=== PATIENT | female | born 1960 | race Caucasian/White ===

== ENCOUNTER 2021-04-11 21:08 | Inpatient (IN) | payer BC ==
[~2021-04-11] VITALS: Ht 172.7 cm; Wt 77.0 kg
[~2021-04-11 21:08] MED LIST: temazepam 15mg capsule PO PRN
[2021-04-11] MEDS ORDERED: ondansetron 4mg rapidly disintigrating tab PO PRN (21:55)
[2021-04-11] MEDS ORDERED: bisacodyl 10mg suppository rectal RC PRN (21:55)
[2021-04-11] MEDS ORDERED: acetaminophen 325mg tablet PO PRN (21:55)
[2021-04-11] MEDS ORDERED: mag hydrox/Alum hydrox/simeth 30ml oral suspension PO PRN (21:55)
[2021-04-11] MEDS ORDERED: diphenhydrAMINE 50 mg/ml inj IV PRN (21:55)
[2021-04-11] MEDS ORDERED: acetaminophen 650mg rectal suppository RC PRN (21:55)
[2021-04-11] MEDS ORDERED: magnesium hydroxide 30ml (MOM) UD suspension PO PRN (21:55)
[2021-04-11] MEDS ORDERED: HYDROcodone/acetaminophen 10/325mg tab PO PRN (21:55)
[2021-04-11] MEDS ORDERED: diphenhydrAMINE 25mg capsule PO PRN (21:55)
[2021-04-11] MEDS ORDERED: morphine 2 MG/ML inj. syringe IV PRN (21:55)
[2021-04-11] MEDS ORDERED: HYDROmorphone inj. 0.5 MG/0.5 ML DISP.SYRIN IV PRN (21:55)
[2021-04-11] MEDS ORDERED: ESTR2TAB6 PO (22:12)
[2021-04-11] MEDS ORDERED: LOSA1TAB36 PO (22:12)
[2021-04-11] MEDS: morphine 2 MG/ML inj. syringe IV PRN (22:57)
[2021-04-11] MEDS: pantoprazole 40 MG vial IV SCH (22:57)
[2021-04-11] MEDS: ondansetron/PF 4mg/2ml inj IV PRN (22:57)
[2021-04-11 23:06] LABS: HEMOGLOBIN A1C 5.4 % (4.5-6.2)
[2021-04-11 23:09] LABS: PARTIAL THROMBOPLASTIN TIME 25 SECONDS (22-32)
[2021-04-11 23:15] LABS: MAGNESIUM 1.8 MG/DL (1.5-2.4); PHOSPHORUS 4.4 MG/DL (2.3-4.5)
[2021-04-12] VITALS (23 sets, daily range): BP systolic 104–127; BP diastolic 55–89
[2021-04-12 01:08] LABS: BASOPHILS % (AUTO) 0.2 % (0-1); EOSINOPHILS % (AUTO) 0.1 % (0-6); HEMATOCRIT 37.3 % (35.0-45.0); HEMOGLOBIN 12.6 g/dl (12.0-16.0); LYMPHOCYTES # (AUTO) 0.6 X10'3 (1.1-4.8); LYMPHOCYTES % (AUTO) 3.4 % (21-51); MEAN CORPUSCULAR HEMOGLOBIN 28.4 PG (27.0-31.0); MEAN CORPUSCULAR HGB CONC 33.9 g/dL (33.0-36.5); MEAN CORPUSCULAR VOLUME 83.8 FL (78-98); MEAN PLATELET VOLUME 7.8 FL (7.4-10.4); MONOCYTES # (AUTO) 1.2 X10'3 (0-0.9); NEUTROPHILS # (AUTO) 17.4 X10'3 (1.8-7.7); NEUTROPHILS % (AUTO) 90.3 % (42-75); PLATELET COUNT 274 X10'3 (140-440); RED BLOOD COUNT 4.45 X10'6 (4.20-5.60); RED CELL DISTRIBUTION WIDTH 13.8 % (11.5-14.5); WHITE BLOOD COUNT 19.3 X10'3 (4.5-11.0)
[2021-04-12] MEDS: dextrose 5%-1/2 normal saline 1,000 ML IV SCH ×4 (01:20→18:28)
[2021-04-12] MEDS: piperacillin/tazo 4.5gm/100ml 100 ML IV SCH ×3 (01:20→16:53)
[2021-04-12 01:22] LABS: ALANINE AMINOTRANSFERASE 17 U/L (12-78); ALBUMIN 2.9 G/DL (3.4-5.0); ALBUMIN/GLOBULIN RATIO 0.8 (1.1-1.5); ALKALINE PHOSPHATASE 74 IU/L (46-116); ANION GAP 9 (8-16); ASPARTATE AMINO TRANSFERASE 16 U/L (10-37); BILIRUBIN,TOTAL 1.2 MG/DL (0.1-1.0); BLOOD UREA NITROGEN 10 MG/DL (7-18); CHLORIDE 105 MMOL/L (99-107); CREATININE 0.91 MG/DL (0.40-0.90); GLUCOSE 122 MG/DL (70-104); POTASSIUM 3.8 MMOL/L (3.5-5.1); SODIUM 140 MMOL/L (135-145); TOTAL CARBON DIOXIDE 26.2 MMOL/L (24-32); TOTAL PROTEIN 6.4 G/DL (6.4-8.2); eGFR 63 ML/MIN
[2021-04-12] MEDS ORDERED: PROG100C11 PO (04:48)
[2021-04-12] MEDS: ondansetron/PF 4mg/2ml inj IV PRN (04:55)
[2021-04-12] MEDS: morphine 2 MG/ML inj. syringe IV PRN (04:56)
[2021-04-12 05:35] LABS: CLARITY,URINE SLIGHTLY CLOUDY (Clear); COLOR,URINE YELLOW (Yellow); UA COLLECTION TYPE CLN CATCH MIDSTREAM
[2021-04-12 05:36] LABS: GLUCOSE, URINE NEGATIVE (Neg); KETONES,URINE TRACE mg/dl (Neg); LEUKOCYTE ESTERASE ,URINE NEGATIVE (Neg); NITRITES, URINE NEGATIVE (Neg); OCCULT BLOOD,URINE NEGATIVE (Neg); PROTEIN,URINE TRACE mg/dl (Neg); UROBILINOGEN,URINE 0.2 E.U/dL (0.2-1.0)
[2021-04-12 05:37] LABS: SQUAMOUS EPITHELIAL CELL,UR MANY /LPF (FEW)
[2021-04-12 05:38] LABS: BACTERIA,URINE FEW /HPF (Neg); MUCUS STRANDS FEW /LPF (Neg); RBC,URINE 0-2 /HPF (0-2); WBC,URINE 0-4 /HPF (0-4)
[2021-04-12] MEDS: docusate sod 100mg capsule PO SCH ×2 (08:00→20:18)
[2021-04-12] MEDS: pantoprazole 40 MG vial IV SCH (08:00)
--- NOTE | 2021-04-12 09:29 | NUR ---
pt has negative covid result done yesterday at [facility] and proof is in pt paperwork.
--- NOTE | 2021-04-12 09:40 | NUR ---
shalini james patient daughter [phone] ,call for update.
[2021-04-12] MEDS ORDERED: fentaNYL/PF 50MCG/1 ML 2ML syringe IV PRN ×2 (09:45)
[2021-04-12] MEDS ORDERED: hydrALAZINE 20mg/ml inj. IV PRN (09:45)
[2021-04-12] MEDS ORDERED: ondansetron/PF 4mg/2ml inj IV PRN (09:45)
[2021-04-12] MEDS ORDERED: morphine 4 MG/ML inj SYRINge IV PRN (09:45)
[2021-04-12] MEDS ORDERED: labetalol 20mg/4ml (5mg/ml) syringe IV PRN (09:45)
[2021-04-12] MEDS ORDERED: ringers solution, lacted 1,000 ML IV SCH (09:45)
[2021-04-12] MEDS ORDERED: morphine 2 MG/ML inj. syringe IV PRN (09:45)
[2021-04-12] MEDS ORDERED: ringers solution, lacted 1,000 ML IV ONE (09:45)
[2021-04-12] MEDS ORDERED: BUPIVAcaine/PF 2.5 mg/ml (0.25%) 30ml vial ONE (11:58)
[2021-04-12] MEDS ORDERED: glycopyrrolate 0.2mg/ml inj ONE (13:13)
[2021-04-12] MEDS ORDERED: sevoflurane 250ml liquid IH ONE (13:13)
[2021-04-12] MEDS ORDERED: neostigmine methylsulfate 1 MG/ML 10ml vial ONE (13:13)
[2021-04-12] MEDS ORDERED: midazolam 1 mg/ML 2ml injection ONE (13:34)
[2021-04-12] MEDS ORDERED: fentaNYL/PF 50MCG/1 ML 2ML syringe ONE (13:34)
[2021-04-12] MEDS ORDERED: rocuronium 10mg/ml inj IV ONE (13:35)
[2021-04-12] MEDS ORDERED: dexamethasone sod phosphate 4mg/ml inj. ONE ×2 (13:35→13:38)
[2021-04-12] MEDS ORDERED: LIDOcaine 2% (20mg/ml) 5ml vial ONE (13:35)
[2021-04-12] MEDS ORDERED: ondansetron/PF 4mg/2ml inj ONE (13:35)
[2021-04-12] MEDS ORDERED: propofol inj 20 ML IV ONE (13:35)
--- NOTE | 2021-04-12 14:15 | NUR ---
Received from OR via [facility] , accompanied by Anesthesiologist NANCY and report given by Anesthesiolgist. PATIENT WITH 20G PIV IN LEFT AC RUNNING LR AT 100. 3 LAP SITES TO ABDOMEN THAT ARE CDI. VSS. 10L MASK ON WITH 100% SATURATIONS. Addendum: 04/12/21 at 1422 by Skinny Levy RN, RN Amended: Links added.
--- NOTE | 2021-04-12 15:11 | NUR ---
Received report from WILLAM Babb. Room 340A has not been cleaned, notified charge nurse and recovery room of this.
--- NOTE | 2021-04-12 16:17 | NUR ---
Room has been cleaned. Recovery room notified.
--- NOTE | 2021-04-12 16:25 | NUR ---
Report called to receiving nurse. Transferred via GURNEY WITH NO Belongings . Special Issues communicated to receiving nurse ZOHRA QUARLES.VSS. DENIES PAIN. DRESSINGS CDI. WILLAM العلي PRESENT TO ACCEPT CARE OF PATIENT. Addendum: 04/12/21 at 1652 by Skinny Lawrence - WILLAM QUARLES Amended: Links added.
--- NOTE | 2021-04-12 16:37 | NUR ---
Patient arrived to floor. VSS. no complaints. Visitor at beside.
--- NOTE | 2021-04-12 18:43 | NUR ---
Problems reprioritized. Patient report given, questions answered & plan of care reviewed with WILLAM Lawler.
[2021-04-12] MEDS: HYDROcodone/acetaminophen 5mg/325mg tablet PO PRN (20:38)
--- NOTE | 2021-04-12 23:30 | NUR ---
Patient in room [facility]. I have received report from Nuris QUARLES and had the opportunity to ask questions and assume patient care.
[2021-04-13] VITALS: BP 107/54
[2021-04-13] MEDS: piperacillin/tazo 4.5gm/100ml 100 ML IV SCH ×4 (00:50→23:44)
--- NOTE | 2021-04-13 01:18 | NUR ---
This RN has reviewed the assessments and interventions documented by the previous RN (Nuris). This RN has assessed the pt and agrees with the documented findings. Will continue to monitor for any changes and address the pts needs accordingly.
[2021-04-13] MEDS: acetaminophen 325mg tablet PO PRN (03:26)
[2021-04-13] MEDS: HYDROcodone/acetaminophen 5mg/325mg tablet PO PRN ×3 (05:21→20:41)
[2021-04-13] MEDS ORDERED: famotidine/PF 10 mg/ml inj IV ONE (06:00)
--- NOTE | 2021-04-13 06:18 | NUR ---
Problems reprioritized. Patient report given, questions answered & plan of care reviewed with Giuliana QUARLES.
[2021-04-13 06:19] LABS: BASOPHILS % (AUTO) 0 % (0-1); EOSINOPHILS % (AUTO) 0 % (0-6); HEMATOCRIT 38.3 % (35.0-45.0); HEMOGLOBIN 12.9 g/dl (12.0-16.0); LYMPHOCYTES # (AUTO) 0.5 X10'3 (1.1-4.8); LYMPHOCYTES % (AUTO) 3.7 % (21-51); MEAN CORPUSCULAR HEMOGLOBIN 28.4 PG (27.0-31.0); MEAN CORPUSCULAR HGB CONC 33.5 g/dL (33.0-36.5); MEAN CORPUSCULAR VOLUME 84.8 FL (78-98); MEAN PLATELET VOLUME 8.5 FL (7.4-10.4); MONOCYTES # (AUTO) 0.7 X10'3 (0-0.9); MONOCYTES % (AUTO) 4.7 % (2-12); NEUTROPHILS # (AUTO) 13.5 X10'3 (1.8-7.7); NEUTROPHILS % (AUTO) 91.6 % (42-75); PLATELET COUNT 275 X10'3 (140-440); RED BLOOD COUNT 4.52 X10'6 (4.20-5.60); WHITE BLOOD COUNT 14.7 X10'3 (4.5-11.0)
--- NOTE | 2021-04-13 06:20 | NUR ---
Patient in room [facility] 340. I have received report from Kerline QUARLES and had the opportunity to ask questions and assume patient care.
[2021-04-13 06:40] LABS: ALANINE AMINOTRANSFERASE 15 U/L (12-78); ALBUMIN 2.9 G/DL (3.4-5.0); ALBUMIN/GLOBULIN RATIO 0.7 (1.1-1.5); ALKALINE PHOSPHATASE 85 IU/L (46-116); ANION GAP 9 (8-16); ASPARTATE AMINO TRANSFERASE 16 U/L (10-37); BILIRUBIN,TOTAL 0.6 MG/DL (0.1-1.0); BLOOD UREA NITROGEN 8 MG/DL (7-18); BUN/CREATININE RATIO 8.8 (6.6-38.0); CALCIUM 8.8 MG/DL (8.5-10.1); CHLORIDE 105 MMOL/L (99-107); CREATININE 0.91 MG/DL (0.40-0.90); GLUCOSE 155 MG/DL (70-104); SODIUM 139 MMOL/L (135-145); TOTAL CARBON DIOXIDE 24.7 MMOL/L (24-32); TOTAL PROTEIN 7.1 G/DL (6.4-8.2); eGFR 63 ML/MIN
[2021-04-13] MEDS: docusate sod 100mg capsule PO SCH ×2 (07:52→20:39)
[2021-04-13] MEDS: pantoprazole 40 MG vial IV SCH (07:52)
[2021-04-13] MEDS: progesterone, micronized 100mg capsule PO SCH (07:53)
[2021-04-13 08:00] VITALS: BP 123/70
[2021-04-13] MEDS ORDERED: losartan 50mg tablet PO SCH (08:00)
[2021-04-13] MEDS ORDERED: HYDROchlorothiazide 12.5mg capsule PO SCH (08:00)
[2021-04-13 12:00] VITALS: BP 116/77
[2021-04-13] MEDS: dextrose 5%-1/2 normal saline 1,000 ML IV SCH (14:50)
--- NOTE | 2021-04-13 18:30 | NUR ---
Problems reprioritized. Patient report given, questions answered & plan of care reviewed with Piter QUARLES.
[2021-04-13 20:00] VITALS: BP 123/60
[2021-04-14] VITALS: BP 148/73
--- NOTE | 2021-04-14 05:08 | NUR ---
mail service coordinator dilaudid discontinued. wasted 62ml with sharonda feliciano Addendum: 04/15/21 at 0225 by Piter Davis RN error in above charting
--- NOTE | 2021-04-14 05:57 | NUR ---
PT RESTING IN BED. NO DISTRESS OVERNIGHT. AMBULATING AND SBA . PT PASSING FLATUS BUT NO BM
--- NOTE | 2021-04-14 06:22 | NUR ---
Patient in room [facility]. I have received report from Piter QUARLES and had the opportunity to ask questions and assume patient care.
[2021-04-14 06:28] LABS: BASOPHILS % (AUTO) 0.2 % (0-1); EOSINOPHILS # (AUTO) 0.2 X10'3 (0-0.9); EOSINOPHILS % (AUTO) 1.5 % (0-6); HEMOGLOBIN 12.2 g/dl (12.0-16.0); LYMPHOCYTES # (AUTO) 1.7 X10'3 (1.1-4.8); LYMPHOCYTES % (AUTO) 15.8 % (21-51); MEAN CORPUSCULAR HEMOGLOBIN 28.6 PG (27.0-31.0); MEAN CORPUSCULAR HGB CONC 33.8 g/dL (33.0-36.5); MEAN CORPUSCULAR VOLUME 84.6 FL (78-98); MEAN PLATELET VOLUME 8.1 FL (7.4-10.4); MONOCYTES # (AUTO) 0.9 X10'3 (0-0.9); MONOCYTES % (AUTO) 8.3 % (2-12); NEUTROPHILS # (AUTO) 8.1 X10'3 (1.8-7.7); NEUTROPHILS % (AUTO) 74.2 % (42-75); PLATELET COUNT 261 X10'3 (140-440); RED BLOOD COUNT 4.26 X10'6 (4.20-5.60); RED CELL DISTRIBUTION WIDTH 13.9 % (11.5-14.5); WHITE BLOOD COUNT 10.9 X10'3 (4.5-11.0)
[2021-04-14 06:43] LABS: ALANINE AMINOTRANSFERASE 60 U/L (12-78); ALBUMIN 2.6 G/DL (3.4-5.0); ALBUMIN/GLOBULIN RATIO 0.7 (1.1-1.5); ALKALINE PHOSPHATASE 136 IU/L (46-116); ANION GAP 7 (8-16); ASPARTATE AMINO TRANSFERASE 75 U/L (10-37); BILIRUBIN,TOTAL 0.7 MG/DL (0.1-1.0); BLOOD UREA NITROGEN 11 MG/DL (7-18); BUN/CREATININE RATIO 11.1 (6.6-38.0); CALCIUM 8.4 MG/DL (8.5-10.1); CHLORIDE 107 MMOL/L (99-107); CREATININE 0.99 MG/DL (0.40-0.90); GLUCOSE 86 MG/DL (70-104); POTASSIUM 3.4 MMOL/L (3.5-5.1); SODIUM 141 MMOL/L (135-145); TOTAL CARBON DIOXIDE 27.1 MMOL/L (24-32); TOTAL PROTEIN 6.4 G/DL (6.4-8.2); eGFR 57 ML/MIN
[2021-04-14] MEDS: piperacillin/tazo 4.5gm/100ml 100 ML IV SCH ×2 (07:25→15:51)
[2021-04-14] MEDS: docusate sod 100mg capsule PO SCH ×2 (07:25→20:09)
[2021-04-14] MEDS: progesterone, micronized 100mg capsule PO SCH (07:25)
[2021-04-14] MEDS: HYDROcodone/acetaminophen 5mg/325mg tablet PO PRN (07:54)
[2021-04-14 08:00] VITALS: BP 129/70
[2021-04-14] MEDS ORDERED: potassium Cl 20 mEq SR tablet PO PRN (10:15)
[2021-04-14] MEDS ORDERED: magnesium Cl slow-release 64mg tablet PO PRN (10:15)
[2021-04-14] MEDS ORDERED: potassium Cl 40MEQ/1/2NS 520ml 520 ML IV PRN (10:15)
[2021-04-14] MEDS: potassium Cl 20 mEq SR tablet PO PRN ×3 (10:56→20:09)
[2021-04-14 11:00] VITALS: BP 121/76
--- NOTE | 2021-04-14 18:26 | NUR ---
Problems reprioritized. Patient report given, questions answered & plan of care reviewed with Piter QUARLES.
[2021-04-14 20:00] VITALS: BP 102/69
[2021-04-14] MEDS ORDERED: K and/or MAG REPLACEMENT MC SCH (20:00)
[2021-04-14] MEDS: acetaminophen 325mg tablet PO PRN (21:24)
[2021-04-14 22:42] VITALS: BP 108/59
[2021-04-15] VITALS: BP 107/87
[2021-04-15] MEDS: dextrose 5%-1/2 normal saline 1,000 ML IV SCH (00:04)
[2021-04-15] MEDS: piperacillin/tazo 4.5gm/100ml 100 ML IV SCH ×2 (00:06→08:32)
--- NOTE | 2021-04-15 02:25 | NUR ---
late entry pt had temp and expressed concern over cleanliness of room . talked to sharonda felicianorn labor delivery and pt was moved to room 346B
--- NOTE | 2021-04-15 02:28 | NUR ---
04/14/21 late entry pt had temp 101.9 p 74 bp 102/69 95% on r/a . pt had ruptured appendix and had lap appy and is currently on zosyn q [address] lewis looked at info in pts chart and stated she did not want to order anything additional at this time but to just continue tylenol . pt and charge nurse sharonda informed
--- NOTE | 2021-04-15 06:30 | NUR ---
Patient in room [facility] 346B. I have received report from WILLAM Dumas and had the opportunity to ask questions and assume patient care.
[2021-04-15 07:13] LABS: BASOPHILS % (AUTO) 0.3 % (0-1); EOSINOPHILS # (AUTO) 0.1 X10'3 (0-0.9); EOSINOPHILS % (AUTO) 1.4 % (0-6); HEMATOCRIT 35.6 % (35.0-45.0); HEMOGLOBIN 12.2 g/dl (12.0-16.0); LYMPHOCYTES # (AUTO) 1.1 X10'3 (1.1-4.8); LYMPHOCYTES % (AUTO) 10.6 % (21-51); MEAN CORPUSCULAR HEMOGLOBIN 28.6 PG (27.0-31.0); MEAN CORPUSCULAR HGB CONC 34.3 g/dL (33.0-36.5); MEAN CORPUSCULAR VOLUME 83.2 FL (78-98); MEAN PLATELET VOLUME 7.6 FL (7.4-10.4); MONOCYTES # (AUTO) 1.1 X10'3 (0-0.9); MONOCYTES % (AUTO) 11.3 % (2-12); NEUTROPHILS # (AUTO) 7.7 X10'3 (1.8-7.7); NEUTROPHILS % (AUTO) 76.4 % (42-75); PLATELET COUNT 308 X10'3 (140-440); RED BLOOD COUNT 4.28 X10'6 (4.20-5.60); RED CELL DISTRIBUTION WIDTH 13.5 % (11.5-14.5); WHITE BLOOD COUNT 10.1 X10'3 (4.5-11.0)
[2021-04-15 07:30] VITALS: BP 112/82
[2021-04-15 07:39] LABS: ALANINE AMINOTRANSFERASE 58 U/L (12-78); ALBUMIN 2.4 G/DL (3.4-5.0); ALBUMIN/GLOBULIN RATIO 0.6 (1.1-1.5); ALKALINE PHOSPHATASE 158 IU/L (46-116); ANION GAP 8 (8-16); ASPARTATE AMINO TRANSFERASE 42 U/L (10-37); BILIRUBIN,TOTAL 0.8 MG/DL (0.1-1.0); BLOOD UREA NITROGEN 9 MG/DL (7-18); BUN/CREATININE RATIO 11.5 (6.6-38.0); CALCIUM 8.4 MG/DL (8.5-10.1); CHLORIDE 108 MMOL/L (99-107); CREATININE 0.78 MG/DL (0.40-0.90); GLUCOSE 87 MG/DL (70-104); POTASSIUM 3.9 MMOL/L (3.5-5.1); SODIUM 141 MMOL/L (135-145); TOTAL CARBON DIOXIDE 25.1 MMOL/L (24-32); TOTAL PROTEIN 6.1 G/DL (6.4-8.2); eGFR 76 ML/MIN
[2021-04-15] MEDS: progesterone, micronized 100mg capsule PO SCH (08:00)
[2021-04-15] MEDS: docusate sod 100mg capsule PO SCH (08:50)
[2021-04-15] MEDS ORDERED: magnesium 4gm in 100ml NS 100 ML IV PRN (10:15)
[2021-04-15] MEDS ORDERED: AMOX-422 PO (10:15)
[2021-04-15] MEDS ORDERED: HYDR-3965 PO (10:15)
[2021-04-15 12:00] VITALS: BP 103/73
--- NOTE | 2021-04-15 12:21 | NUR ---
Pt's Temp at 11:00 = 100.0. After ambulating in hallway the patient's temperatures at 11:45 & 12:20 remained 98.5 degrees.
== END 2021-04-15 13:35 | disposition home or self-care (01) | DRG 340 ==
LOC: ER 21:09 → UNDOADMIN 22:00 → ED HOLD 22:00 → SUR 3N 04-12 16:29 → ED HOLD 04-12 16:29 → SUR 3N 04-12 17:17
PROVIDERS: ADMIT Family Medicine; ATTEND Family Medicine
PROC: 0DTJ4ZZ Resection of Appendix, Percutaneous Endoscopic Approach (ICD-10-PCS; principal; 2021-04-12 13:13)
DX: K35.32 Acute appendicitis with perforation, localized peritonitis, and gangrene, without abscess (principal); Z20.822 Contact with and (suspected) exposure to COVID-19; E87.6 Hypokalemia; I10 Essential (primary) hypertension; Z79.890 Hormone replacement therapy; Z79.899 Other long term (current) drug therapy
CPT/HCPCS: 99285; Z7506; Z7508; 36415; 80053; 81001; 83036; 83735; 83880; 84100; 85025; 85610; 85730; 87081; 93005; A4215; A4314; A4618; A7000; C9113; G0378; J1100; J2001; J2250; J2270; J2405; J2543; J2704; J2710; J3010; J3490; J7120